=== PATIENT | female | born 1980 | race African-American/Black ===

== ENCOUNTER 2016-12-20 15:42 | Inpatient (IN) | payer MEDICAID, OTHER ==
[~2016-12-20] VITALS: Ht 162.6 cm; Wt 79.8 kg
[2016-12-20] MEDS ORDERED: ACETAMINOPHEN 325MG TABLET PO ONE (17:00)
[2016-12-20 17:35] LABS: CLARITY URINE CLEAR (CLEAR); COLOR URINE YELLOW (YELLOW); GLUCOSE URINE NEGATIVE (NEGATIVE); KETONES URINE TRACE (NEGATIVE); LEUKOCYTE ESTERASE URINE NEGATIVE (NEGATIVE); NITRITE URINE NEGATIVE (NEGATIVE); OCCULT BLOOD URINE 3+ (NEGATIVE); PH URINE 6.5 (4.5-8.0); PROTEIN URINE NEGATIVE (NEGATIVE); SPECIFIC GRAVITY URINE 1.026 (1.005-1.030)
[2016-12-20 17:37] LABS: BASOPHILS % 0.9 % (0.0-2.0); EOSINOPHILS % 2.5 % (0.0-5.0); HEMATOCRIT. 31.1 % (36.0-48.0); HEMOGLOBIN. 10.4 g/dL (12.0-16.0); MEAN CORPUSCULAR HGB CONC 33.5 g/dL (31.0-37.0); MEAN CORPUSCULAR VOLUME 89.6 fL (81.0-99.0); MEAN PLATELET VOLUME 8.2 fl (7.4-10.4); MONOCYTES % 8.3 % (2.0-8.0); NEUTROPHILS % 65.3 % (40.0-76.0); PLATELET 245 x1000/uL (130-400); RED BLOOD CELL COUNT 3.47 mill/uL (4.2-5.4); RED CELL DISTRIBUTION WIDTH 13.9 % (11.6-14.6); WHITE BLOOD COUNT 6.1 x1000/uL (4.5-11.0)
[2016-12-20 17:40] LABS: CHLORIDE 108 mEq/L (98-107); INDEX HEMOLYSI 1 (1-3); INDEX ICTERIC 1 (1-4); INDEX LIPEMIC 1 (1-3)
[2016-12-20 17:45] LABS: ANION GAP 11; CALCIUM 8.8 mg/dL (8.5-10.1); CARBON DIOXIDE 23 mEq/L (21-32); UREA NITROGEN BLOOD 10 mg/dL (7-21)
[2016-12-20 17:47] LABS: eGFR > 60 mL/min (>60)
[2016-12-20 18:05] LABS: B-HCG QUANTITATIVE 11081 mIU/mL (<3)
[2016-12-20 18:18] LABS: BACTERIA URINE TRACE; SQUAMOUS EPITHELIAL CELL URINE FEW /lpf (RARE/1+)
[2016-12-20 18:20] LABS: RBC URINE 25-50 /hpf (0-2); WBC URINE 0-2 /hpf (0-2)
[2016-12-20] MEDS ORDERED: MISOPROSTOL 200MCG TABLET PO ONE (19:45)
[2016-12-20] MEDS ORDERED: MORPHINE SULFATE 4 MG/ML CPJ (NOT FOR IM USE) IV ONE (19:45)
[2016-12-20] MEDS ORDERED: SODIUM CHLORIDE 0.9% 1,000 ML IV ONE (19:57)
[2016-12-20 22:40] VITALS: BP 156/100
[2016-12-20] MEDS ORDERED: ONDANSETRON HCL 4MG/2ML VIAL IV PRN (23:00)
[2016-12-20] MEDS ORDERED: MORPHINE SULFATE 2 MG/ML CPJ (NOT FOR IM USE) IV PRN (23:00)
[2016-12-20 23:12] VITALS: BP 156/100
[2016-12-21] MEDS ORDERED: MISOPROSTOL 200MCG TABLET PO SCH
[2016-12-21] MEDS: HYDROMORPHONE HCL/PF 2MG/ML CPJ IV PRN ×3 (00:14→09:53)
[2016-12-21 00:51] VITALS: BP 105/66
[2016-12-21 04:00] VITALS: BP 108/73
[2016-12-21] MEDS: MISOPROSTOL 200MCG TABLET PO SCH ×2 (04:00→09:52)
[2016-12-21 07:33] LABS: HEMOGLOBIN 9.9 g/dL (12.0-16.0); MEAN CORPUSCULAR HEMOGLOBIN 30.6 pg (28.0-32.0); MEAN CORPUSCULAR HGB CONC 34.1 g/dL (31.0-37.0); MEAN CORPUSCULAR VOLUME 89.8 fL (81.0-99.0); PLATELET 211 x1000/uL (130-400); RED BLOOD CELL COUNT 3.22 mill/uL (4.2-5.4); RED CELL DISTRIBUTION WIDTH 13.9 % (11.6-14.6); WHITE BLOOD COUNT 7.1 x1000/uL (4.5-11.0)
[2016-12-21 08:00] VITALS: BP 114/75
[2016-12-21 12:00] VITALS: BP 109/73
[2016-12-21 12:29] VITALS: BP 109/73
[2016-12-21 16:00] VITALS: BP 119/88
== END 2016-12-21 17:35 | disposition home or self-care (01) | DRG 564 ==
LOC: ER 17:35 → 6EST 19:58
PROVIDERS: ADMIT Obstetrics & Gynecology; ATTEND Obstetrics & Gynecology
DX: O03.9 Complete or unspecified spontaneous abortion without complication (principal); D62 Acute posthemorrhagic anemia; F12.90 Cannabis use, unspecified, uncomplicated; O99.331 Smoking (tobacco) complicating pregnancy, first trimester; O99.321 Drug use complicating pregnancy, first trimester; O99.311 Alcohol use complicating pregnancy, first trimester; Z3A.08 8 weeks gestation of pregnancy; O09.521 Supervision of elderly multigravida, first trimester
CPT/HCPCS: 36415; 76856; 80048; 81001; 81025; 84702; 85025; 85027; 86850; 86900; 88305; 96361; 96374; 99285; J1170; J2270; J7030

== ENCOUNTER 2018-12-24 16:43 | Inpatient (IN) | payer MEDICARE, OTHER ==
[~2018-12-24] VITALS: Ht 167.6 cm; Wt 110.2 kg
[2018-12-24] MEDS ORDERED: KETOROLAC 30MG/ML VIAL IV STA (18:53)
[2018-12-24] MEDS ORDERED: FENTANYL CITRATE/PF 50MCG/ML 2ML VIAL IV ONE (19:00)
[2018-12-24] MEDS ORDERED: DIPHENHYDRAMINE 50MG/ML VIAL IV ONE (19:00)
[2018-12-24 19:21] LABS: CLARITY URINE CLEAR (CLEAR); COLOR URINE YELLOW (YELLOW); KETONES URINE NEGATIVE (NEGATIVE); LEUKOCYTE ESTERASE URINE TRACE (NEGATIVE); NITRITE URINE NEGATIVE (NEGATIVE); OCCULT BLOOD URINE NEGATIVE (NEGATIVE); PH URINE 7.5 (4.5-8.0); PROTEIN URINE NEGATIVE (NEGATIVE); SPECIFIC GRAVITY URINE 1.016 (1.005-1.030); UROBILINOGEN URINE 0.2 E.U./dL (0.2-1.0)
[2018-12-24 19:40] LABS: HEMATOCRIT. 32.6 % (36.0-48.0); MEAN CORPUSCULAR HEMOGLOBIN 30.5 pg (28.0-32.0); MEAN CORPUSCULAR VOLUME 90.2 fL (81.0-99.0); MEAN PLATELET VOLUME 7.3 fl (7.4-10.4); PLATELET 324 x1000/uL (130-400); RED BLOOD CELL COUNT 3.62 mill/uL (4.2-5.4); RED CELL DISTRIBUTION WIDTH 13.4 % (11.6-14.6)
[2018-12-24 19:43] LABS: CHLORIDE 108 mEq/L (98-107)
[2018-12-24 20:39] LABS: PLATELET ESTIMATE NORMAL
[2018-12-25] MEDS ORDERED: ONDANSETRON HCL 4MG/2ML INJ IV PRN (00:30)
[2018-12-25] MEDS ORDERED: CLONIDINE 0.1MG TABLET PO PRN (00:30)
[2018-12-25] MEDS: HYDROCODONE/ACETAMINOPHEN 5/325MG TABLET PO PRN ×3 (04:32→23:50)
[2018-12-25 05:57] VITALS: BP 116/61
[2018-12-25 05:58] VITALS: BP 116/61
[2018-12-25 08:30] VITALS: BP 116/82
[2018-12-25] MEDS: LORAZEPAM 2MG/ML CPJ IV PRN ×2 (09:42→20:56)
[2018-12-25] MEDS: FOLIC ACID 1MG TABLET PO SCH (09:43)
[2018-12-25] MEDS: ENOXAPARIN 30MG/0.3ML SYR SUBCUT SCH ×2 (09:43→20:09)
[2018-12-25 12:00] VITALS: BP 106/61
[2018-12-25 12:00] LABS: EOSINOPHILS % 6.5 % (0.0-5.0); HEMATOCRIT. 31.8 % (36.0-48.0); HEMOGLOBIN. 10.8 g/dL (12.0-16.0); LYMPHOCYTES % 17.5 % (20.0-50.0); MEAN CORPUSCULAR HEMOGLOBIN 31.1 pg (28.0-32.0); MEAN CORPUSCULAR VOLUME 92.2 fL (81.0-99.0); MEAN PLATELET VOLUME 8.6 fl (7.4-10.4); MONOCYTES % 13.2 % (2.0-8.0); NEUTROPHILS % 61.8 % (40.0-76.0); PLATELET 267 x1000/uL (130-400); RED BLOOD CELL COUNT 3.45 mill/uL (4.2-5.4); RED CELL DISTRIBUTION WIDTH 13.5 % (11.6-14.6)
[2018-12-25 12:21] LABS: CHLORIDE 107 mEq/L (98-107)
[2018-12-25] MEDS: SODIUM CHLORIDE 0.9% 1,000 ML IV SCH (12:28)
[2018-12-25] MEDS: LEVOFLOXACIN 500MG PREMIX 100 ML IV SCH (12:30)
[2018-12-25] MEDS: DIPHENHYDRAMINE 50MG/ML VIAL IV PRN ×2 (13:16→20:08)
[2018-12-25 16:00] VITALS: BP 127/86
[2018-12-25 20:00] VITALS: BP 116/78
[2018-12-25] MEDS ORDERED: METHYLPREDNISOLONE SOD SUCC 125 MG/2 ML VIAL IV NR (20:00)
[2018-12-26] VITALS: BP 130/85
[2018-12-26] MEDS: DIPHENHYDRAMINE 50MG/ML VIAL IV PRN ×3 (02:36→18:04)
[2018-12-26] MEDS: SODIUM CHLORIDE 0.9% 1,000 ML IV SCH (03:13)
[2018-12-26] MEDS: LORAZEPAM 2MG/ML CPJ IV PRN ×3 (03:13→20:37)
[2018-12-26 04:00] VITALS: BP 131/83
[2018-12-26] MEDS: HYDROCODONE/ACETAMINOPHEN 5/325MG TABLET PO PRN (05:22)
[2018-12-26 06:17] LABS: BASOPHILS % 0.8 % (0.0-2.0); EOSINOPHILS % 0.5 % (0.0-5.0); HEMATOCRIT. 34.8 % (36.0-48.0); HEMOGLOBIN. 11.6 g/dL (12.0-16.0); LYMPHOCYTES % 7.7 % (20.0-50.0); MEAN CORPUSCULAR HEMOGLOBIN 30.2 pg (28.0-32.0); MEAN CORPUSCULAR VOLUME 90.3 fL (81.0-99.0); MEAN PLATELET VOLUME 8.1 fl (7.4-10.4); MONOCYTES % 2.9 % (2.0-8.0); NEUTROPHILS % 88.1 % (40.0-76.0); PLATELET 328 x1000/uL (130-400); RED BLOOD CELL COUNT 3.86 mill/uL (4.2-5.4); RED CELL DISTRIBUTION WIDTH 13.4 % (11.6-14.6)
[2018-12-26 06:29] LABS: CHLORIDE 106 mEq/L (98-107)
[2018-12-26 08:00] VITALS: BP 138/90
[2018-12-26] MEDS: FOLIC ACID 1MG TABLET PO SCH (08:31)
[2018-12-26] MEDS: ENOXAPARIN 30MG/0.3ML SYR SUBCUT SCH ×2 (08:35→20:30)
[2018-12-26] MEDS: LEVOFLOXACIN 500MG PREMIX 100 ML IV SCH (08:35)
[2018-12-26] MEDS ORDERED: METHYLPREDNISOLONE SOD SUCC 40 MG/ML VIAL IV SCH (10:30)
[2018-12-26 12:00] VITALS: BP 153/87
[2018-12-26 16:00] VITALS: BP 151/88
[2018-12-26] MEDS: METHYLPREDNISOLONE SOD SUCC 40 MG/ML VIAL IV SCH (18:04)
[2018-12-26 20:00] VITALS: BP 136/84
[2018-12-27] VITALS (7 sets, daily range): BP systolic 134–166; BP diastolic 74–105
[2018-12-27] MEDS: DIPHENHYDRAMINE 50MG/ML VIAL IV PRN ×4 (00:05→12:33)
[2018-12-27] MEDS: HYDROCODONE/ACETAMINOPHEN 5/325MG TABLET PO PRN ×2 (00:12→08:41)
[2018-12-27] MEDS: METHYLPREDNISOLONE SOD SUCC 40 MG/ML VIAL IV SCH ×2 (03:20→11:00)
[2018-12-27] MEDS: FOLIC ACID 1MG TABLET PO SCH (08:36)
[2018-12-27] MEDS: ENOXAPARIN 30MG/0.3ML SYR SUBCUT SCH (08:50)
[2018-12-27] MEDS ORDERED: LEVOFLOXACIN 500MG PREMIX 100 ML IV SCH (09:00)
[2018-12-27] MEDS ORDERED: CLOTRIMAZOLE 1% CREAM 30GM TOP SCH (21:00)
[2018-12-27] MEDS ORDERED: MICONAZOLE NITRATE 100MG VAG SUPP VG SCH (21:00)
[2018-12-28 08:13] LABS: COMPLEMENT C3 114 mg/dL (82-167)
== END 2018-12-27 16:50 | disposition home or self-care (01) | DRG 607 ==
LOC: ER 16:43 → 6EST 22:11 → ENRESERV 12-25 03:47 → 5WST 12-25 08:29
PROVIDERS: ADMIT Internal Medicine Nephrology; ATTEND Internal Medicine Nephrology
DX: L29.9 Pruritus, unspecified (principal); M32.9 Systemic lupus erythematosus, unspecified; T36.0X5A Adverse effect of penicillins, initial encounter; D63.8 Anemia in other chronic diseases classified elsewhere; I10 Essential (primary) hypertension; Z88.5 Allergy status to narcotic agent; Y92.89 Other specified places as the place of occurrence of the external cause
CPT/HCPCS: 36415; 80048; 85651; 86140; 86160; 96365; 96375; 99285; J1200; J1650; J1885; J1956; J2060; J2920; J2930; J3010

== ENCOUNTER 2025-03-29 07:53 | Emergency (ER) | payer MEDICARE, OTHER ==
[~2025-03-29] VITALS: Ht 167.6 cm; Wt 79.0 kg
[2025-03-29 07:54] VITALS: TEMP 36.3; O2SAT 100
[2025-03-29] MEDS ORDERED: ACETAMINOPHEN 500MG TABLET PO ONE (08:15)
[2025-03-29] MEDS: KETOROLAC 30MG/ML VIAL IM ONE (09:00)
[2025-03-29] MEDS ORDERED: PROP1DRO2 MT (09:44)
[2025-03-29] MEDS ORDERED: MUPI15CR11 TP (09:44)
[2025-03-29] MEDS ORDERED: IBUP-2030 MT (09:44)
[2025-03-29] MEDS ORDERED: VALA100044 MT (09:44)
[2025-03-29] MEDS: BACITRACIN ZINC OINT UDPKT TOP ONE (10:09)
[2025-03-29 10:19] VITALS: BP 155/107; PULSE 63; RESP 15; O2SAT 99
== END 2025-03-29 10:21 | disposition home or self-care (01) ==
LOC: ER 07:53
DX: B02.30 Zoster ocular disease, unspecified (principal); I10 Essential (primary) hypertension; Z55.6 Problems related to health literacy; Z98.890 Other specified postprocedural states; Z88.0 Allergy status to penicillin; Z88.5 Allergy status to narcotic agent; Z91.011 Allergy to milk products
CPT/HCPCS: 99285; 70450; 96372; J1885; 96374